=== PATIENT | male | born 1970 | race African-American/Black ===

== ENCOUNTER → 2018-06-21 | Outpatient (REF) | payer OTHER ==
[2018-06-21 18:22] LABS: ALBUMIN/GLOBULIN RATIO 1.11 (1.00-1.93); ALKALINE PHOSPHATASE 122 U/L (45-117); ALT/SGPT 48 U/L (12-78); ANION GAP 7 MEQ/L (8-16); AST/SGOT 28 U/L (7-37); BILIRUBIN,TOTAL 0.4 MG/DL (0.2-1.0); BLOOD UREA NITROGEN 12 MG/DL (7-18); CALCIUM LEVEL 9.1 MG/DL (8.5-10.1); CARBON DIOXIDE LEVEL 30 MEQ/L (21-32); CHLORIDE LEVEL 104 MEQ/L (98-107); CHOLESTEROL LEVEL 134 MG/DL (<200); CHOLESTEROL RISK RATIO 3.828 (<5); CREATININE FOR GFR 1.34 MG/DL (0.70-1.30); GLOMERULAR FILTRATION RATE > 60.0 (>60); GLUCOSE, FASTING 218 MG/DL (70-100); HDL CHOLESTEROL 35 MG/DL (>40); LDL CHOLESTEROL 71 MG/DL (<100); NON-HDL-C 99 MG/DL; POTASSIUM SERUM 3.8 MEQ/L (3.5-5.1); SODIUM LEVEL 141 MEQ/L (136-145); TOTAL PROTEIN 7.6 GM/DL (6.4-8.2); TRIGLYCERIDES LEVEL 140 MG/DL (<150)
[2018-06-21 18:27] LABS: ESTIMATED AVERAGE GLUCOSE 235 MG/DL (60-110); HEMOGLOBIN A1c 9.8 %
[2018-06-21 18:39] LABS: BASO % 0.2 % (0.0-1.0); EOS % 0.7 % (0.0-3.0); HEMATOCRIT 42.5 % (42.0-52.0); HEMOGLOBIN 12.8 g/dl (13.5-17.5); LYMPH # 2.6 10^3/uL (1.5-4.5); LYMPH % 65.7 % (24.0-44.0); MEAN CORPUSCULAR HEMOGLOBIN 23.9 pg (27.0-33.0); MEAN CORPUSCULAR HGB CONC 30.1 g/dl (32.0-36.5); MEAN CORPUSCULAR VOLUME 79.3 fl (80.0-96.0); MONO # 0.3 10^3/uL (0.0-0.8); NEUTROPHILS % 25.4 % (36.0-66.0); PLATELET COUNT, AUTOMATED 165 10^3/uL (150-450); RED BLOOD COUNT 5.36 10^6/uL (4.30-6.10); RED CELL DISTRIBUTION WIDTH 14.1 % (11.5-14.5)
== END ==
LOC: M LABDRAW1 16:28
DX: E11.9 Type 2 diabetes mellitus without complications (principal); Z13.220 Encounter for screening for lipoid disorders; C92.01 Acute myeloblastic leukemia, in remission

== ENCOUNTER → 2018-11-21 | Outpatient (CLI) | payer OTHER ==
[~2018-11-21] MED LIST: ACTO45TA12 PO; METF10004 PO
[2018-11-21 10:29] LABS: HEMOGLOBIN A1c 7.4 %
== END ==
LOC: M LAB 09:42
PROVIDERS: ATTEND Nurse Practitioner Family
DX: E11.9 Type 2 diabetes mellitus without complications (principal)

== ENCOUNTER 2019-12-04 08:02 | Outpatient (CLI) | payer OTHER ==
[~2019-12-04 08:02] MED LIST changes: +IBUP200C25 PO; +LIDOCAINE 2% INJ 100 MG/5 ML SDV (FOR ANES.) As Ordered ONE; +MIDAZOLAM INJ 2 MG/2 ML VIAL (J2250) As Ordered ONE; +ROCURONIUM BROMIDE 50 MG/5 ML VIAL As Ordered ONE; +fentaNYL 100 MCG/2 ML INJECTION (J3010) As Ordered ONE; +propofoL 200 MG/20 ML VIAL As Ordered ONE
[2019-12-04] MEDS ORDERED: LIDOCAINE 1% MDV 20ML VIAL As Ordered ONE (08:20)
[2019-12-04 08:36] LABS: HEMATOCRIT 37.5 % (42.0-52.0); HEMOGLOBIN 11.4 g/dl (13.5-17.5); MEAN CORPUSCULAR HEMOGLOBIN 24.8 pg (27.0-33.0); MEAN CORPUSCULAR HGB CONC 30.4 g/dl (32.0-36.5); MEAN CORPUSCULAR VOLUME 81.5 fl (80.0-96.0); PLATELET COUNT, AUTOMATED 181 10^3/uL (150-450); WHITE BLOOD COUNT 3.9 10^3/uL (4.0-10.0)
[2019-12-04 10:55] VITALS: BP 152/90
--- NOTE | 2019-12-04 18:12 | REP ---
CT-GUIDED BONE MARROW BIOPSY The procedure was performed under the direct supervision of Dr. Lara. The risks and benefits of the procedure were explained to the patient and informed consent was obtained. Anesthesia was present throughout the examination for sedation and pain control. The left ilium was localized using CT guidance. The skin was prepped and draped in a sterile fashion. 1% lidocaine was used as a local anesthetic. Using CT guidance a 11-gauge bone biopsy needle system was inserted. 12 ml of fluid was withdrawn. One core sample was obtained. The patient tolerated the procedure well and there were no immediate complications. After the appropriate amount of monitored convalescence the patient was discharged from the department. Electronically Signed by ANA Jacobson 12/04/2019 05:34 P Electronically Signed by Tu Lara MD 12/04/2019 06:04 P
== END 2019-12-04 11:15 | disposition home or self-care (01) ==
LOC: M IRPRO 08:02
PROVIDERS: ATTEND Internal Medicine Hematology & Oncology
DX: C92.00 Acute myeloblastic leukemia, not having achieved remission (principal); D64.9 Anemia, unspecified; D72.819 Decreased white blood cell count, unspecified
CPT/HCPCS: 38222; 77012; 85027; 88300; 88305; 88311; 88313; 99152; 99153; J2250; J3010

== ENCOUNTER → 2019-12-18 | Outpatient (CLI) | payer OTHER ==
[~2019-12-18] MED LIST changes: -LIDOCAINE 2% INJ 100 MG/5 ML SDV (FOR ANES.) As Ordered ONE; -MIDAZOLAM INJ 2 MG/2 ML VIAL (J2250) As Ordered ONE; -ROCURONIUM BROMIDE 50 MG/5 ML VIAL As Ordered ONE; -fentaNYL 100 MCG/2 ML INJECTION (J3010) As Ordered ONE; -propofoL 200 MG/20 ML VIAL As Ordered ONE
--- NOTE | 2019-12-18 10:12 | REP ---
ULTRASOUND ABDOMEN: Real-time sonographic evaluation of the abdomen performed. There are at least two polyps identified along the inner wall of the gallbladder measuring up to 4 mm in diameter. No gallstones are seen. There is no gallbladder wall thickening or pericholecystic fluid. There is no ascites. There is no intrahepatic or extrahepatic biliary dilatation, common bile duct measuring 2 mm. Liver demonstrates no mass. Pancreas could not be seen due to overlying bowel gas. Spleen measures 10.6 x 5.4 x 12.4 cm. There is mild splenomegaly based on a splenic index of 709, normal is less than 480. Kidneys are normal in size and echotexture, right kidney measuring 10.6 x 6.5 x 6.2 cm and left kidney 10.8 x 4.6 x 5.1 cm. There is no hydronephrosis, renal mass, or nephrolithiasis. Proximal abdominal aorta is not visualized due to overlying bowel gas. Distal abdominal aorta is normal in caliber measuring up to 1.9 cm. IMPRESSION: At least two gallbladder polyps seen measuring up to 4 mm. Recommend followup ultrasound in 6 months to ensure stability. Mild splenomegaly. Liver is sonographically unremarkable. Electronically Signed by Tu Lara MD 12/18/2019 03:15 P
--- NOTE | 2019-12-18 10:31 | REP ---
REASON FOR EXAM: Assess for lytic or blastic osseous lesion. There are no priors for comparison. AP AND LATERAL VIEWS OF THE SKULL: There is no lytic or blastic osseous lesion. AP AND LATERAL VIEWS OF THE CERVICAL SPINE: There are some degenerative changes seen at the C3-4 through C5-6 levels with disc space narrowing and anterior along with posterior osteophytic ridging. There is no lytic or blastic osseous lesion. There are bilateral cervical ribs. AP EXAMINATION OF THE CHEST: There is no lytic or blastic osseous lesion. AP PELVIS: There is no lytic or blastic osseous lesion. AP AND LATERAL VIEWS OF THE LUMBAR SPINE: There are some degenerative changes seen particularly at L4-5 and L5-S1 with disc space narrowing and anterior osteophytosis. There is no lytic or blastic osseous lesion. HIP BILATERAL: FINDINGS: The hip joint spaces are symmetric and relatively well maintained. There is no acute fracture or destructive osseous lesion. There is no lytic or blastic osseous lesion. AP VIEWS OF THE FEMUR BILATERAL: There is no lytic or blastic osseous lesion. BILATERAL HUMERUS: No lytic or blastic osseous lesion. AP LATERAL VIEWS OF THE THORACIC SPINE: There are degenerative changes present particularly involving the mid thoracic level. There is no lytic or blastic osseous lesion. IMPRESSION: There are some degenerative changes as described above. There is no evidence of a lytic or blastic osseous lesion seen on this osseous survey as described above. Electronically Signed by Abel Escalante DO 12/18/2019 12:56 P
== END ==
LOC: M RAD 07:58
PROVIDERS: ATTEND Internal Medicine Hematology & Oncology
DX: C95.90 Leukemia, unspecified not having achieved remission (principal)

== ENCOUNTER → 2019-12-29 | Outpatient (CLI) | payer OTHER ==
--- NOTE | 2019-12-29 10:00 | REP ---
Duplex extremity venous ultrasound: Right lower extremity. History: Right lower extremity edema. Rule out DVT. Findings: The deep veins are anechoic and fully compressible from the groin to the popliteal fossa in the right lower extremity. Color flow imaging is homogeneous. Spectral Doppler interrogation demonstrates intact respiratory variation in flow and normal manual augmentation of flow. There is no evidence of deep vein thrombosis. In the right groin, there is a hypertrophied lymph node measuring 4.7 x 1.8 x 3.3 cm in diameter. This has a hyperechoic central hilar architecture but must be considered enlarged. Impression: There is a single enlarged lymph node in the right groin 4.7 cm in greatest diameter. Neoplastic adenopathy cannot be excluded. Otherwise negative right lower extremity duplex venous ultrasound. No evidence of deep vein thrombosis. Electronically Signed by Juan C Hankins MD 12/29/2019 09:51 A
== END ==
LOC: M RAD 09:23
PROVIDERS: ATTEND Internal Medicine Medical Oncology
DX: R59.0 Localized enlarged lymph nodes (principal)

== ENCOUNTER → 2020-01-04 | Outpatient (CLI) | payer OTHER ==
[~2020-01-04] MED LIST changes: +GASTROGRAFIN SOLUTION 30ML (Q9963) As Ordered ONE; +ISOVUE-370 76% 100ML VIAL (Q9967) As Ordered ONE
--- NOTE | 2020-01-05 06:15 | REP ---
Clinical: Left inguinal adenopathy. Technique: Axial contrast enhanced images from the thoracic inlet to the upper abdomen with coronal and sagittal re-formations using 100 ml Isovue 370 intravenous contrast material followed by contrast enhanced CT of the abdomen and pelvis. Comparison: None. Findings: The lung clark demonstrate very subtle small scattered non solid ground-glass densities primarily noted in the left hemithorax as well as an 11 mm nodule in the left lower lobe with smaller adjacent part solid nodules measuring 2 mm (image 48). No consolidation. No effusion. No pneumothorax. Tracheobronchial tree is patent. No significant axillary, hilar, or mediastinal adenopathy. Thoracic aorta, pulmonary vasculature and heart/pericardium appear normal. Surrounding musculoskeletal structures are intact. Impression: 1. Few scattered subtle non solid ground-glass densities and 11 mm left lower lobe nodule with adjacent 2 mm nodules. Findings are concerning for acute process including the possibility of metastatic disease. Short-term follow-up examination may be warranted. Electronically Signed by Joseluis Cordero MD 01/05/2020 06:07 A
--- NOTE | 2020-01-05 06:28 | REP ---
Clinical: Inguinal adenopathy. Technique: Axial contrast enhanced images from the lung bases to the pubic symphysis using oral (per protocol) and 100 ml Isovue 370 intravenous contrast material with coronal and sagittal re-formations. Findings: Liver, spleen, pancreas, gallbladder, bilateral adrenal glands are normal. Kidneys include small hypodensities measuring up to 1.2 cm likely representing cysts. The enteric system is grossly unremarkable and without obvious acute abnormality. Evaluation of the pelvis demonstrates a 3 mm bladder calculus which may have represented previously passed renal stone. Prostate and seminal vesicles are essentially unremarkable by current CT evaluation. No ascites. No intra-abdominal or retroperitoneal adenopathy. Prominent enhancing inguinal lymph nodes are identified (right greater than left) which measure up to 2.7 cm and are nonspecific by appearance. The abdominal aorta and vasculature is without aneurysm or dissection. Skeletal structures demonstrate age-related changes primarily involving the pelvis/lumbar spine. Impression: 1. 3 mm bladder calculus likely representing previously passed renal stone. 2. Small renal hypodensities most compatible with cysts. 3. No obvious acute abdominopelvic pathology appreciated. No ascites. No intra-abdominal or retroperitoneal adenopathy. 4. Moderately prominent enhancing inguinal lymph nodes (right greater than left) measure up to 2.7 cm and are nonspecific by current examination. Electronically Signed by Joseluis Cordero MD 01/05/2020 06:19 A
== END ==
LOC: M RAD 12:49
PROVIDERS: ATTEND Internal Medicine Medical Oncology
DX: R59.0 Localized enlarged lymph nodes (principal)
CPT/HCPCS: 71260; 74177; Q9963; Q9967

== ENCOUNTER 2020-02-26 16:09 | Emergency (ER) | payer OTHER ==
[~2020-02-26] VITALS: Ht 188 cm; Wt 112.7 kg
[~2020-02-26 16:09] MED LIST changes: -GASTROGRAFIN SOLUTION 30ML (Q9963) As Ordered ONE; -ISOVUE-370 76% 100ML VIAL (Q9967) As Ordered ONE
[2020-02-26] MEDS ORDERED: CYCLOBENZAPRINE 10MG TABLET PO ONE (16:45)
[2020-02-26] MEDS ORDERED: NS 1,000 ML IV ONE (16:45)
[2020-02-26] MEDS ORDERED: KETOROLAC 30 MG/ML 1ML VIAL IV ONE (16:45)
--- NOTE | 2020-02-26 17:06 | REPVR ---
PROCEDURE INFORMATION: Exam: CT Head Without Contrast Exam date and time: 02/26/2020 4:42 PM Age: 49 years old Clinical indication: Pain; Headache; Additional info: Headache/neck pain/fever TECHNIQUE: Imaging protocol: Computed tomography of the head without contrast. Radiation optimization: All CT scans at this facility use at least one of these dose optimization techniques: automated exposure control; mA and/or kV adjustment per patient size (includes targeted exams where dose is matched to clinical indication); or iterative reconstruction. COMPARISON: No relevant prior studies available. FINDINGS: Brain: Normal. No hemorrhage. Unremarkable white matter. No mass effect. Ventricles: Normal. No ventriculomegaly. Bones/joints: Unremarkable. No acute fracture. Sinuses: Visualized sinuses are unremarkable. No fluid levels. Mastoid air cells: Visualized mastoid air cells are well aerated. Soft tissues: Unremarkable. IMPRESSION: No acute intracranial abnormality. Electronically signed by: Otoniel Cabrales On 02/26/2020 17:06:00 PM
--- NOTE | 2020-02-26 17:10 | REPVR ---
PROCEDURE INFORMATION: Exam: CT Cervical Spine Without Contrast Exam date and time: 02/26/2020 4:42 PM Age: 49 years old Clinical indication: Neck pain; Additional info: Headache/neck pain/fever TECHNIQUE: Imaging protocol: Computed tomography images of the cervical spine without contrast. Radiation optimization: All CT scans at this facility use at least one of these dose optimization techniques: automated exposure control; mA and/or kV adjustment per patient size (includes targeted exams where dose is matched to clinical indication); or iterative reconstruction. COMPARISON: No relevant prior studies available. FINDINGS: Vertebrae: The spine demonstrates mild degenerative changes. C1-C2: There are degenerative changes demonstrated in the atlantoaxial joint with osteophytes and joint space narrowing. The transverse ligament is unremarkable. C2-C3: No significant disc protrusion. No severe spinal canal stenosis. No significant neural foraminal narrowing. C3-C4: No significant disc protrusion. No severe spinal canal stenosis. No significant neural foraminal narrowing. C4-C5: No significant disc protrusion. No severe spinal canal stenosis. No significant neural foraminal narrowing. C5-C6: No significant disc protrusion. No severe spinal canal stenosis. No significant neural foraminal narrowing. C6-C7: No significant disc protrusion. No severe spinal canal stenosis. No significant neural foraminal narrowing. C7-T1: No significant disc protrusion. No severe spinal canal stenosis. No significant neural foraminal narrowing. Soft tissues: See "C1-C2" finding. Sinuses: Small retention cyst left maxillary sinus. Lungs: Lung apices are normal. IMPRESSION: Mild degenerative spondylosis. No acute findings. Electronically signed by: Otoniel Cabrales On 02/26/2020 17:09:56 PM
[2020-02-26 17:28] LABS: HEMATOCRIT 34.6 % (42.0-52.0); HEMOGLOBIN 10.8 g/dl (13.5-17.5); MEAN CORPUSCULAR HEMOGLOBIN 24.9 pg (27.0-33.0); MEAN CORPUSCULAR HGB CONC 31.2 g/dl (32.0-36.5); MEAN CORPUSCULAR VOLUME 79.7 fl (80.0-96.0); RED BLOOD COUNT 4.34 10^6/uL (4.30-6.10); WHITE BLOOD COUNT 3.3 10^3/uL (4.0-10.0)
[2020-02-26 17:41] LABS: PLATELET COUNT, AUTOMATED 98 10^3/uL (150-450)
[2020-02-26 17:45] LABS: ALBUMIN 3.3 GM/DL (3.2-5.2); ALT/SGPT 43 U/L (12-78); BILIRUBIN,DIRECT < 0.1 MG/DL (0.0-0.2); BILIRUBIN,TOTAL 0.4 MG/DL (0.2-1.0); C REACTIVE PROTEIN QUANTITATIV 7.09 MG/DL (0.00-0.30); FREE T4 1.02 NG/DL (0.76-1.46); MAGNESIUM LEVEL 1.5 MG/DL (1.8-2.4); THYROID STIMULATING HORMONE 0.877 uIU/ML (0.358-3.740); TOTAL PROTEIN 8.3 GM/DL (6.4-8.2)
[2020-02-26 17:54] LABS: ERYTHROCYTE SEDIMENTATION RATE 33 mm/hr (0-15)
[2020-02-26 18:19] LABS: ATYPICAL LYMPH 11 % (0-5); LYMPHOCYTES 51 % (16-44); METAMYELOCYTES 1 % (0-0); MONOCYTES 11 % (0-5); NEUTROPHILS 26 % (28-66)
[2020-02-26 18:21] LABS: ANISOCYTOSIS 1+; MICROCYTOSIS 1+; PLATELET ESTIMATE DECREASED (NORMAL)
[2020-02-26 18:22] LABS: GIANT PLATELETS 1+; POIKILOCYTOSIS 1+
[2020-02-26 18:37] LABS: HEMOGLOBIN A1c 11.8 %
[2020-02-26 21:17] VITALS: BP 108/67
--- NOTE | 2020-02-27 03:53 | REP ---
TWO-VIEW CHEST, 02/26/2020: INDICATION: Fever. COMPARISON: CT chest dated 01/04/2020. FINDINGS: The previously described tiny nodules on the CT exam are not significantly appreciated on the current study. No new nodules are detected. There is no pleural effusion or pneumothorax. No airspace consolidation is present. The cardiac silhouette is normal in size. IMPRESSION: No acute cardiopulmonary process. MTDD
[2020-02-27] MEDS ORDERED: LEVA1TAB2 PO (16:30)
[2020-03-06] MEDS ORDERED: ACTO45TA12 PO (11:15)
[2020-03-06] MEDS ORDERED: METF-838 PO (11:15)
== END 2020-02-26 21:19 | disposition home or self-care (01) ==
LOC: M ED 16:09
DX: R51 Headache (principal); R50.9 Fever, unspecified; Z91.14 Patient's other noncompliance with medication regimen; E11.9 Type 2 diabetes mellitus without complications; F41.9 Anxiety disorder, unspecified; F32.9 Major depressive disorder, single episode, unspecified; Z79.84 Long term (current) use of oral hypoglycemic drugs; Z79.899 Other long term (current) drug therapy
CPT/HCPCS: 70450; 71046; 72125; 80047; 80076; 81001; 83036; 83605; 83735; 84439; 84443; 85025; 85049; 85055; 85652; 86140; 96361; 96374; 99284; J1885

== ENCOUNTER → 2020-03-19 | Outpatient (REF) | payer OTHER ==
[~2020-03-19] MED LIST changes: +LEVA1TAB2 PO; +METF-838 PO
[2020-03-19 13:19] LABS: HEMATOCRIT 25.9 % (42.0-52.0); MEAN CORPUSCULAR HEMOGLOBIN 24.9 pg (27.0-33.0); MEAN CORPUSCULAR HGB CONC 30.9 g/dl (32.0-36.5); MEAN CORPUSCULAR VOLUME 80.7 fl (80.0-96.0); RED BLOOD COUNT 3.21 10^6/uL (4.30-6.10); WHITE BLOOD COUNT 4.7 10^3/uL (4.0-10.0)
[2020-03-19 13:30] LABS: ALBUMIN 2.8 GM/DL (3.2-5.2); ALT/SGPT 21 U/L (12-78); BILIRUBIN,TOTAL 0.4 MG/DL (0.2-1.0); BLOOD UREA NITROGEN 14 MG/DL (7-18); CALCIUM LEVEL 8.2 MG/DL (8.5-10.1); CARBON DIOXIDE LEVEL 25 MEQ/L (21-32); CHLORIDE LEVEL 103 MEQ/L (98-107); CHOLESTEROL LEVEL 102 MG/DL (<200); CHOLESTEROL RISK RATIO 4.857 (<5); CREATININE FOR GFR 1.59 MG/DL (0.70-1.30); GLOMERULAR FILTRATION RATE > 60.0 (>60); GLUCOSE, FASTING 170 MG/DL (70-100); HDL CHOLESTEROL 21 MG/DL (>40); LDL CHOLESTEROL 56 MG/DL (<100); NON-HDL-C 81 MG/DL; POTASSIUM SERUM 3.7 MEQ/L (3.5-5.1); SODIUM LEVEL 134 MEQ/L (136-145); TOTAL PROTEIN 8.4 GM/DL (6.4-8.2); TRIGLYCERIDES LEVEL 124 MG/DL (<150)
[2020-03-19 13:43] LABS: HEMOGLOBIN A1c 12.8 %
[2020-03-19 13:59] LABS: TOTAL 25(OH) VITAMIN D 15.3 NG/ML (30.0-100.0)
[2020-03-19 14:04] LABS: PLATELET COUNT, AUTOMATED 98 10^3/uL (150-450)
[2020-03-19 14:49] LABS: ATYPICAL LYMPH 7 % (0-5); BLAST CELLS 3 % (0-0); LYMPHOCYTES 76 % (16-44); MONOCYTES 7 % (0-5); NEUTROPHILS 7 % (28-66); PLATELET ESTIMATE DECREASED (NORMAL)
[2020-03-19 14:50] LABS: ANISOCYTOSIS 2+; HYPOCHROMASIA 2+; OVALOCYTES 1+; POIKILOCYTOSIS 2+; SMUDGE CELLS 1+
[2020-03-19 14:52] LABS: POLYCHROMASIA 1+
== END ==
LOC: M LAB REF 12:27
PROVIDERS: ATTEND Nurse Practitioner Family
DX: L03.116 Cellulitis of left lower limb (principal); G44.219 Episodic tension-type headache, not intractable; E11.9 Type 2 diabetes mellitus without complications; M79.662 Pain in left lower leg; R22.42 Localized swelling, mass and lump, left lower limb

== ENCOUNTER → 2020-03-26 | Outpatient (CLI) | payer OTHER ==
[~2020-03-26] MED LIST changes: +B-1100TA2; +B-12100020; +FOLI1TAB11; +MAGN400T3; +POTA20TA6; +VITA100T71
--- NOTE | 2020-03-27 07:27 | REP ---
DEEP VENOUS ULTRASONOGRAPHY LEFT THIGH, RULE OUT DVT: REASON: Pain and swelling. TECHNIQUE: Multiple ultrasonographic images of the deep venous structures of the thigh were obtained from the common femoral vein to the popliteal vein along with Doppler interrogation and color flow Doppler images. FINDINGS: There is no abnormal echogenic material seen within any of the visualized deep venous structures that would suggest acute thrombosis. Coaptation is unremarkable throughout. Doppler interrogation shows an expected response to respiratory variability and augmentation. The color flow images show what appears to be a normal vascular pattern throughout. IMPRESSION: There is no ultrasonographic evidence of deep venous thrombosis involving any of the visualized deep venous structures of the left thigh, as described above.
== END ==
LOC: M WHC 12:28
PROVIDERS: ATTEND Nurse Practitioner Family
DX: R22.42 Localized swelling, mass and lump, left lower limb (principal); M79.662 Pain in left lower leg

== ENCOUNTER 2020-03-27 14:45 | Observation (INO) | payer OTHER ==
[~2020-03-27] VITALS: Ht 188 cm; Wt 108.9 kg
[~2020-03-27 14:45] MED LIST changes: -B-1100TA2; -B-12100020; -FOLI1TAB11; -MAGN400T3; -POTA20TA6; -VITA100T71
[2020-03-27] MEDS ORDERED: NS 1,000 ML IV ONE (15:15)
[2020-03-27 15:39] LABS: HEMATOCRIT 23.2 % (42.0-52.0); HEMOGLOBIN 7.1 g/dl (13.5-17.5); MEAN CORPUSCULAR HEMOGLOBIN 24.4 pg (27.0-33.0); MEAN CORPUSCULAR HGB CONC 30.6 g/dl (32.0-36.5); MEAN CORPUSCULAR VOLUME 79.7 fl (80.0-96.0); RED BLOOD COUNT 2.91 10^6/uL (4.30-6.10); WHITE BLOOD COUNT 6.2 10^3/uL (4.0-10.0)
[2020-03-27 15:45] LABS: PLATELET COUNT, AUTOMATED 68 10^3/uL (150-450)
[2020-03-27 16:10] LABS: ALBUMIN 2.9 GM/DL (3.2-5.2); ALT/SGPT 20 U/L (12-78); BILIRUBIN,DIRECT < 0.1 MG/DL (0.0-0.2); BILIRUBIN,TOTAL 0.1 MG/DL (0.2-1.0); BLOOD UREA NITROGEN 23 MG/DL (7-18); CALCIUM LEVEL 8.2 MG/DL (8.5-10.1); CARBON DIOXIDE LEVEL 27 MEQ/L (21-32); CHLORIDE LEVEL 109 MEQ/L (98-107); CREATININE FOR GFR 1.72 MG/DL (0.70-1.30); GLUCOSE, FASTING 150 MG/DL (70-100); LIPASE 413 U/L (73-393); POTASSIUM SERUM 3.8 MEQ/L (3.5-5.1); SODIUM LEVEL 139 MEQ/L (136-145); TOTAL PROTEIN 8.4 GM/DL (6.4-8.2)
[2020-03-27 16:20] LABS: ATYPICAL LYMPH 8 % (0-5); BASOPHILS 2 % (0-1); BLAST CELLS 4 % (0-0); LYMPHOCYTES 68 % (16-44); MONOCYTES 10 % (0-5); NEUTROPHILS 5 % (28-66); PLATELET ESTIMATE DECREASED (NORMAL); PROMYELOCYTES 3 % (0-0)
[2020-03-27 16:21] LABS: ANISOCYTOSIS 1+; HYPOCHROMASIA 1+; MICROCYTOSIS 1+; POLYCHROMASIA 1+; SMUDGE CELLS 1+
[2020-03-27] MEDS ORDERED: NS 1,000 ML IV SCH (18:00)
[2020-03-27] MEDS ORDERED: DEXTROSE 50% 50 ML SYRINGE IV PRN (18:15)
[2020-03-27] MEDS ORDERED: GLUCOSE 4GM CHEW TABLET PO PRN (18:15)
[2020-03-27] MEDS ORDERED: GLUCAGON INJ 1MG VIAL SC PRN (18:15)
[2020-03-27] MEDS ORDERED: metFORMIN XR 500MG TAB *GLUCOPHAGE XR PO SCH (21:00)
[2020-03-27] MEDS ORDERED: HumaLOG INSULIN (NovoLOG) PER UNIT SC SCH (21:00)
[2020-03-28] VITALS (18 sets, daily range): BP systolic 105–129; BP diastolic 58–86
[2020-03-28] MEDS ORDERED: ACETAMINOPHEN 650MG ER TAB (TYLENOL ARTHRITIS) PO PRN (01:30)
[2020-03-28] MEDS ORDERED: FAMOTIDINE 20 MG TAB PO ONE (01:30)
--- NOTE | 2020-03-28 04:35 | HPE ---
DATE OF ADMISSION: 03/27/2020 CHIEF COMPLAINT: Shortness of breath. 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 The patient had a bone marrow biopsy 05/23/2015 with residual AML (AML) with 10% blasts, reinduction with MEC chemotherapy. Later bone marrow biopsy showed no evidence of residual disease, status post 3 cycles of Olga-C consolidation, remain in complete remission. Last chemo was 2015. Chemo was complicated with acute renal insufficiency and cellulitis with improvement. The patient had noted two weeks of worsening dizziness and shortness of breath. 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 He has had no falls. Denies bright red blood per rectum, melena or black tarry stools. No coffee ground emesis. No palpitations. Increase in shortness of breath occurred in the past one week, especially worse when he walks up just a small hill. No chest pain, pressure or tightness. He had a similar episode about four years ago when he had severe anemia. He then went to the registration after being in touch with his oncologist and found to be anemia with hemoglobin of 7.5 and hematocrit of 24.9 on 03/25/2020. While at registration today, the patient sat down and was waiting to be called when he developed severe left-sided back pain that lasted for about an hour described as 10/10, very sharp without any radiation. I recognized this as prior kidney stone pain and he therefore went to the bathroom to urinate, after which he saw some brownish urine. He was then sent to the emergency room for further evaluation. CT of the abdomen and pelvis for negative for a kidney stone and he was subsequently asked to be admitted for red blood cells (RBC) transfusion. Per medical oncologist aeronautical products sales engineer, Dr. Kim. The patient is to have washed red blood cells (RBCs) 2 units and may be discharged home if stable overnight. The patient denies any fever or chills, dysuria, urgency, frequency. No recurrent episodes of left-sided flank pain. The patient complains of neuropathy in his left leg from his diabetes and says takes Tylenol and ibuprofen, but was told not to take any more ibuprofen by his primary care physician. Creatinine today is 2.72. He has chronic kidney disease with a creatinine of 1.5 at baseline. Hospitalist was asked to admit. PAST MEDICAL HISTORY: 1. Acute myeloblastic leukemia (AML). 2. Type 2 diabetes. 3. Chronic kidney disease, stage III. PAST SURGICAL HISTORY: 1. Bilateral carpal tunnel surgery. 2. Tonsillectomy. 3. Port placement for chemotherapy several years ago. ALLERGIES: No known drug allergies. HOME MEDICATIONS: - metformin 1 gm at bedtime (q.h.s.). 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 He smokes two cigars a year. Occasionally has liquor once to twice a week. The patient does not have a healthcare proxy. Lives alone, does not drive. FAMILY HISTORY: Father had diabetes, in his 60s. Mother with diabetes, hypertension, in her 60s. Several brothers and sisters, unknown medical problems. REVIEW OF SYSTEMS: Per history of present illness. 12-point system otherwise negative. PHYSICAL EXAMINATION: Temperature 96.5, pulse 99, respiratory rate 22, blood pressure (BP) 126/77, 100% on room air. General: Awake, alert, and oriented times 2, answered questions appropriately. No icterus, no jaundice. No pallor. No jugular venous distension (JVD), thyromegaly or cervical lymphadenopathy. Moist mucous membranes. Lungs are clear to auscultation. No wheezing, rales or rhonchi. Heart: S1, S2, sinus rhythm. Abdomen: Soft, nontender, nondistended. Positive bowel sounds. Extremities: No cyanosis or clubbing. There is 1+ pitting edema bilaterally. LABORATORY DATA: White count is 6.2, hemoglobin 7.1, hematocrit 22.2, platelet count is 68. Sodium 139, potassium 2.8, chloride 109, bicarbonate 27, BUN 22, creatinine 1.72. Previous creatinine was 1.59 in February 2020. Yesterday it was 1.82, glucose is 150, calcium is 8.2. CT abdomen and pelvis: No official report. ASSESSMENT AND PLAN: This is a 49-year-old male, -[place], acute myeloblastic leukemia (AML) and type 2 diabetes with complaints of symptomatic anemia, dizziness for two weeks, worsening shortness of breath for the past one week, found to be anemic with hemoglobin of 7 and hematocrit of 23. CURRENT ISSUES: 1. Symptomatic anemia, most likely related to his acute myeloblastic leukemia (AML). Per medical oncologist, Dr. Kim, the patient is to be transfused 2 units of washed red blood cells, check hemoglobin and hematocrit after and may be discharged home in the morning. 2. History of kidney stones. The patient with some gross hematuria. The patient currently has no fever or chills. Says that he may have passed a kidney stone while waiting in registration. Currently has no pain. No dysuria, urgency, frequency. No empiric antibiotics currently. Has no obstructive stones on the CT abdomen and pelvis. Outpatient followup with his primary care physician. 2. Type 2 diabetes. The patient may resumed on his home metformin and Actos. 3. Chronic thrombocytopenia. Platelet count are 84 to 146. No acute indication for red blood cell (RBC) transfusion.
--- NOTE | 2020-03-28 05:53 | REP ---
CT ABDOMEN AND PELVIS WITHOUT CONTRAST: CT abdomen and pelvis performed without oral or IV contrast. Comparison made with prior CT with contrast 01/04/2020. In the visualized lung bases, there is a stable nodule in the left lower lobe. The liver is grossly unremarkable. Spleen is normal in size. The adrenal glands are normal. No gross pancreatic abnormality is seen. Punctate calcification is seen in the lower right renal collecting system. No ureteral calculus is seen bilaterally, and there is no hydroureteronephrosis. There is no abdominal aortic aneurysm. There is no adenopathy. There is no free air or free fluid. There is no bowel wall thickening. The appendix is normal. The urinary bladder is mildly distended and grossly unremarkable. There is bilateral inguinal adenopathy. Largest lymph node in the right inguinal region measures 2.6 x 1.9 cm and left inguinal region 3.0 x 1.9 cm. IMPRESSION: Stable left lower lobe nodule. Bilateral inguinal adenopathy, as discussed above. Punctate calcification right renal collecting system. No ureteral calculus and no hydroureteronephrosis. Appendix is normal. Electronically Signed by Tu Lara MD 03/31/2020 10:03 P
[2020-03-28 06:01] LABS: HEMATOCRIT 21.7 % (42.0-52.0); MEAN CORPUSCULAR HEMOGLOBIN 25.1 pg (27.0-33.0); MEAN CORPUSCULAR HGB CONC 31.3 g/dl (32.0-36.5); MEAN CORPUSCULAR VOLUME 80.1 fl (80.0-96.0); RED BLOOD COUNT 2.71 10^6/uL (4.30-6.10); WHITE BLOOD COUNT 4.7 10^3/uL (4.0-10.0)
[2020-03-28 06:06] LABS: HEMOGLOBIN 6.8 g/dl (13.5-17.5); PLATELET COUNT, AUTOMATED 54 10^3/uL (150-450)
[2020-03-28 06:29] LABS: BLOOD UREA NITROGEN 20 MG/DL (7-18); CALCIUM LEVEL 7.8 MG/DL (8.5-10.1); CARBON DIOXIDE LEVEL 26 MEQ/L (21-32); CHLORIDE LEVEL 109 MEQ/L (98-107); CREATININE FOR GFR 1.51 MG/DL (0.70-1.30); GLOMERULAR FILTRATION RATE > 60.0 (>60); GLUCOSE, FASTING 132 MG/DL (70-100); POTASSIUM SERUM 3.8 MEQ/L (3.5-5.1); SODIUM LEVEL 141 MEQ/L (136-145)
[2020-03-28] MEDS: HumaLOG INSULIN (NovoLOG) PER UNIT SC SCH ×2 (07:30→12:00)
--- NOTE | 2020-03-28 13:21 | IPNPDOC ---
Text Note Date of Service The patient was seen on 03/28/20. NOTE Subjective: -Still has some chest pain that sounds like pleuritic in nature, not made worse by exertion and present at rest, 3-4/10 level -Wants to know when he will discharged because he was told that he needs blood and can go home shortly after Objective: PHYSICAL EXAMINATION: Vitals: see below, HDS, afebrile General: Awake, alert, and oriented, NAD HEENT: Normocephalic, atraumatic, anicteric, PERRLA, EOMI Neck: No JVD, palpable adenopathy or thyromegaly Lungs: Lungs are clear to auscultation. No wheezing, rales or rhonchi. Heart: S1, S2, sinus rhythm. Abdomen: Soft, nontender, nondistended. Normoactive bowel sounds. Extremities: 1+ pitting edema bilaterally with some hyperpigmentation of LE shins Skin: sloughing of LE skin, no open lesions LABORATORY DATA: WBC 4.7 Hgb 6.[address] abdomen and pelvis: In the visualized lung bases, there is a stable nodule in the left lower lobe. The liver is grossly unremarkable. Spleen is normal in size. The adrenal glands are normal. No gross pancreatic abnormality is seen. Punctate calcification is seen in the lower right renal collecting system. No ureteral calculus is seen bilaterally, and there is no hydroureteronephrosis. There is no abdominal aortic aneurysm. There is no adenopathy. There is no free air or free fluid. There is no bowel wall thickening. The appendix is normal. The urinary bladder is mildly distended and grossly unremarkable. There is bilateral inguinal adenopathy. Largest lymph node in the right inguinal region measures 2.6 x 1.9 cm and left inguinal region 3.0 x 1.9 cm. ASSESSMENT AND PLAN: This is a 49-year-old -[place] and with history of AML s/p 7+3 induction x 2 and [facility] consolidation with remission who was admitted from hematology clinic with symptomatic anemia, dizziness for two weeks, worsening shortness of breath for the past one week, found to be anemic to 6.5 s/p 4u washed pRBCs pending follow up CBC for potential discharge home per hematolgoy recs. CURRENT ISSUES: 1. Symptomatic anemia, most likely 2/2 to recurrent acute myeloblastic leukemia (AML). -Per medical oncologist, Dr. Kim, the patient should be transfused washed red blood cells, check hemoglobin and hematocrit after and may be discharged home after 2. History of kidney stones. The patient had an episode of some gross hematuria, likely passed stone and has no fever and chills or dysuria. Will monitor 3. Type 2 diabetes. resumed on his home metformin. Actos being held, to restart at discharge. 4. Chronic thrombocytopenia. No acute indication for red blood cell (RBC) transfusion. 5. Chest pain; likely demand ischemia 2/2 anemia with non ischemic EKG, negative troponin. -D dimer given pleurisy to see if he warrants a V/Q scan given the renal insult and cannot have contrast 6. renal injury: has had elevated Cr since 03/09 labs -monitor for now DVT ppx: TEDs VS,Fishbone, I+O VS, Fishbone, I+O Laboratory Tests 03/27/20 15:23 03/28/20 05:21 Vital Signs Date Time Temp Pulse Resp B/P (MAP) Pulse Ox O2 Delivery O2 Flow Rate FiO2 03/28/20 12:43 97.0 68 16 108/59 99 Room Air I&O- Last 24 Hours up to 6 AM 03/28/20 06:00 Intake Total 770 ml Balance 770 ml CHERYL RODRIGUEZ MD Mar 28, 2020 13:21
[2020-03-28 14:35] LABS: HEMATOCRIT 29.3 % (42.0-52.0); MEAN CORPUSCULAR HEMOGLOBIN 26.4 pg (27.0-33.0); MEAN CORPUSCULAR HGB CONC 32.1 g/dl (32.0-36.5); MEAN CORPUSCULAR VOLUME 82.3 fl (80.0-96.0); RED BLOOD COUNT 3.56 10^6/uL (4.30-6.10); WHITE BLOOD COUNT 4.6 10^3/uL (4.0-10.0)
[2020-03-28 14:39] LABS: HEMOGLOBIN 9.4 g/dl (13.5-17.5); PLATELET COUNT, AUTOMATED 56 10^3/uL (150-450)
--- NOTE | 2020-03-28 16:29 | DS.PDOC ---
Discharge Summary General Date of Admission Mar 27, 2020 at 18:32 Date of Discharge 03/28/2020 Attending Physician: CHERYL RODRIGUEZ MD Discharge Summary PROCEDURES PERFORMED DURING STAY: None ADMITTING DIAGNOSES: 1. 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 He presented to the ED reporting two weeks of worsening dizziness and shortness of breath, without any falls, bright red blood per rectum, melena or black tarry stools. No coffee ground emesis. No palpitations. He also reported some mild chest pain without pressure or tightness. He had a similar episode about four years ago when he had severe anemia. He initially presented to registration after being in touch with his oncologist and found to be anemia with hemoglobin of 7.5 and hematocrit of 24.9 on 03/25/2020. While at registration, he developed severe left-sided back pain that lasted for about an hour and recognized this as prior kidney stone pain and he therefore went to the bathroom to urinate, after which he saw some brownish urine. He was then sent to the emergency room for further evaluation. HOSPITAL COURSE: In the ED, he was hemodynamically stable, afebrile and on evaluation had a non ischemic EKG, negative troponin, no hypoxemia, with CT of the abdomen and pelvis being negative for a kidney stone and on speaking with the net development manager bank operations officer Dr. Kim, he recommended admission for transfusion with washed red blood cells and be discharged home if stable overnight. He was transfused 2 units without improvement in the Hgb so he was transfused 2 more units to which he eventually responded to a Hgb of 9.4. Of note, I discussed his anemia with Dr. 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 Nichole his new net development manager and will also order tickborne panel to rule out infectious etiology. DISCHARGE MEDICATIONS: Please see below. ALLERGIES: Please see below. PHYSICAL EXAMINATION ON DISCHARGE: VITAL SIGNS: Please see below. General: Awake, alert, and oriented, NAD HEENT: Normocephalic, atraumatic, anicteric, PERRLA, EOMI Neck: No JVD, palpable adenopathy or thyromegaly Lungs: Lungs are clear to auscultation. No wheezing, rales or rhonchi. Heart: S1, S2, sinus rhythm. Abdomen: Soft, nontender, nondistended. Normoactive bowel sounds. Extremities: 1+ pitting edema bilaterally with some hyperpigmentation of LE shins Skin: sloughing of LE skin, no open lesions LABORATORY DATA: Please see below. IMAGING: In the visualized lung bases, there is a stable nodule in the left lower lobe. The liver is grossly unremarkable. Spleen is normal in size. The adrenal glands are normal. No gross pancreatic abnormality is seen. Punctate calcification is seen in the lower right renal collecting system. No ureteral calculus is seen bilaterally, and there is no hydroureteronephrosis. There is no abdominal aortic aneurysm. There is no adenopathy. There is no free air or free fluid. There is no bowel wall thickening. The appendix is normal. The urinary bladder is mildly distended and grossly unremarkable. There is bilateral inguinal adenopathy. Largest lymph node in the right inguinal region measures 2.6 x 1.9 cm and left inguinal region 3.0 x 1.9 cm. PROGNOSIS: Good ACTIVITY: As tolerated DIET: Consistent carb DISCHARGE PLAN: home with close hematology follow up DISPOSITION: home with close hematology follow up DISCHARGE INSTRUCTIONS: 1. Hematology follow up within 1 week ITEMS TO FOLLOWUP ON ON OUTPATIENT: 1. Anemia, hematology follow up DISCHARGE CONDITION: Stable TIME SPENT ON DISCHARGE: 45 minutes. Vital Signs/I&Os Vital Signs Date Time Temp Pulse Resp B/P (MAP) Pulse Ox O2 Delivery O2 Flow Rate FiO2 03/28/20 14:00 97.5 73 18 114/64 (81) 100 Room Air I&O- Last 24 Hours up to 6 AM 03/28/20 06:00 Intake Total 770 ml Balance 770 ml Laboratory Data Labs 24H Laboratory Tests 2 03/27/20 17:27: Urine Color YELLOW, Urine Appearance HAZY, Urine pH 5.0, Urine Specific [place] 1.012, Urine Protein 1+H, Urine Glucose (UA) NEGATIVE, Urine Ketones NEGATIVE, Urine Blood 3+H, Urine Nitrite NEGATIVE, Urine Bilirubin NEGATIVE, Urine Urobilinogen 0.2, Urine Leukocyte Esterase NEGATIVE, Urine WBC (Auto) 1, Urine RBC (Auto) TNTCH, Urine Hyaline Casts (Auto) 0, Urine Bacteria (Auto) NEGATIVE, Urine Squamous Epithelial Cells 0, Urine Mucus (Auto) SMALL, Urine Sperm (Auto) 03/27/20 21:13: Bedside Glucose (Misc Panel) 183H 03/28/20 02:02: Troponin I < 0.02 03/28/20 05:21: Nucleated Red Blood Cells % (auto) 0.0, Differential Slide Review Report, Peripheral Blood Smear Path Consult PERIPHERAL SMEAR, Anion Gap 6L, Glomerular Filtration Rate > 60.0, Calcium Level 7.8L 03/28/20 14:06: Nucleated Red Blood Cells % (auto) 0.0, D-Dimer, Quantitative 706.45H CBC/BMP Laboratory Tests 03/28/20 05:21 03/28/20 14:06 FSBS Laboratory Tests Test 03/27/20 21:13 Range/Units Bedside Glucose (Misc Panel) 183 70-105 MG/DL Discharge Medications Scheduled Metformin HCl (Metformin HCl ER) 500 Mg Tab.er.24h, 1,000 MG PO QHS, (Reported) Pioglitazone HCl (Actos) 45 Mg Tablet, 45 MG PO DAILY, (Reported) Allergies Coded Allergies: No Known Allergies (Verified , 03/26/03) CHERYL RODRIGUEZ MD Mar 28, 2020 16:29
--- NOTE | 2020-03-29 10:06 | ECGEPIP ---
[facility] - ED Test Date: 2020-03-28 Pat Name: ASHISH LO Department: Room: 0102 Gender: Male Noteman: ESTUARDO : 1970 Requested By: Jyoti Preston Order Number: [id number] Reading MD: Jyoti Preston Measurements Intervals [place] Rate: 60 P: 26 [place]: 164 QRS: 19 QRSD: 103 T: 27 QT: 406 QTc: 407 Interpretive Statements SINUS RHYTHM WITH SINUS ARRHYTHMIA NSTTW abnormalities NO PRIOR Electronically Signed on 03-29-2020 10:05:46 EDT by Jyoti Preston
[2020-04-09 16:08] LABS: BABESIA MICROTI PCR Negative (Negative); BABESIOSIS LEVEL IGG <1:10 (Neg:<1:10); BABESIOSIS LEVEL IGM <1:10 (Neg:<1:10); E CHAFFEENSIS IgG TITER Negative (Neg:<1:64); E CHAFFEENSIS IgM TITER Negative (Neg:<1:20); HAPTOGLOBIN 222 mg/dL (23-355); HUMAN GRANULCYTIC EHRLIC IgG Negative (Neg:<1:64); HUMAN GRANULCYTIC EHRLIC IgM Negative (Neg:<1:20)
== END 2020-03-28 16:25 | disposition home or self-care (01) ==
LOC: M ED 14:45 → M ED INP 18:32
PROVIDERS: ADMIT General Practice; ATTEND General Practice
DX: D64.9 Anemia, unspecified (principal); N18.3 Chronic kidney disease, stage 3 (moderate); Z85.6 Personal history of leukemia; E11.9 Type 2 diabetes mellitus without complications; Z92.21 Personal history of antineoplastic chemotherapy; R06.02 Shortness of breath; R42 Dizziness and giddiness; R91.1 Solitary pulmonary nodule; N20.0 Calculus of kidney; Z79.84 Long term (current) use of oral hypoglycemic drugs; F17.290 Nicotine dependence, other tobacco product, uncomplicated
CPT/HCPCS: 36415; 36430; 74176; 80048; 80076; 81001; 83010; 83690; 85025; 85027; 85049; 85055; 85379; 86609; 86666; 86850; 86900; 86901; 86920; 87798; 93005; 96374; 99284; P9016

== ENCOUNTER → 2020-04-22 | Outpatient (CLI) | payer OTHER ==
[~2020-04-22] MED LIST changes: +B-1100TA2; +B-12100020; +FOLI1TAB11; +LIDOCAINE 1% MDV 20ML VIAL As Ordered ONE; +MAGN400T3; +POTA20TA6; +VITA100T71
--- NOTE | 2020-07-15 09:49 | REP ---
CT-GUIDED RIGHT ILIAC BONE MARROW BIOPSY: The procedure was performed under the direct supervision of Dr. Hankins. The risks and benefits of the procedure were explained to the patient and informed consent was obtained. PROCEDURE: The right iliac bone was localized using CT guidance. The skin was prepped and draped in a sterile fashion. 1% lidocaine was used as a local anesthetic. Using CT guidance, an 11-gauge coaxial needle biopsy system was inserted and advanced into the iliac bone. 7 cc of red fluid was withdrawn was well as 1 core. The patient tolerated the procedure well and there were no immediate complications. After the appropriate amount of monitored convalescence, the patient was discharged from the department. HAYLEE
== END ==
LOC: M IRPRO 01:00
PROVIDERS: ATTEND Specialist
DX: C92.02 Acute myeloblastic leukemia, in relapse (principal)

== ENCOUNTER → 2020-06-28 | Outpatient (REF) | payer OTHER ==
[~2020-06-28] MED LIST changes: -LIDOCAINE 1% MDV 20ML VIAL As Ordered ONE
[2020-06-28 16:55] LABS: BASO % 0.5 % (0.0-1.0); EOS % 0.9 % (0.0-3.0); HEMATOCRIT 29.2 % (42.0-52.0); HEMOGLOBIN 9.3 g/dl (13.5-17.5); LYMPH # 1.1 10^3/uL (1.5-5.0); LYMPH % 24.3 % (24.0-44.0); MEAN CORPUSCULAR HEMOGLOBIN 28.6 pg (27.0-33.0); MEAN CORPUSCULAR HGB CONC 31.8 g/dl (32.0-36.5); MEAN CORPUSCULAR VOLUME 89.8 fl (80.0-96.0); MONO # 0.6 10^3/uL (0.0-0.8); MONO % 12.8 % (0.0-5.0); NEUTROPHILS # 2.7 10^3/uL (1.5-8.5); PLATELET COUNT, AUTOMATED 177 10^3/uL (150-450); RED BLOOD COUNT 3.25 10^6/uL (4.30-6.10); WHITE BLOOD COUNT 4.4 10^3/uL (4.0-10.0)
[2020-06-28 17:01] LABS: APPEARANCE, URINE CLEAR (CLEAR); BACTERIA, URINE AUTO 1+ (NEGATIVE); BILIRUBIN, URINE AUTO NEGATIVE (NEGATIVE); BLOOD, URINE BLOOD NEGATIVE (NEGATIVE); COLOR, URINE YELLOW (YELLOW); GLUCOSE, URINE (UA) AUTO NEGATIVE (NEGATIVE); KETONE, URINE AUTO NEGATIVE (NEGATIVE); LEUKOCYTE ESTERASE, URINE AUTO NEGATIVE (NEGATIVE); MUCUS, URINE SMALL (NEGATIVE); NITRITE, URINE AUTO NEGATIVE (NEGATIVE); PROTEIN, URINE AUTO 1+ mg/dL (NEGATIVE); RBC, URINE AUTO 0 /HPF (0-3); SPECIFIC GRAVITY URINE AUTO 1.017 (1.002-1.035); SQUAMOUS EPITHELIAL CELL UR AU 0 /HPF (0-6); UROBILINOGEN, URINE AUTO 0.2 mg/dL (0.0-2.0); WBC, URINE AUTO 1 /HPF (0-3)
[2020-06-28 17:14] LABS: HEMOGLOBIN A1c 6.1 %
[2020-06-28 17:20] LABS: ALBUMIN 3.2 GM/DL (3.2-5.2); ALT/SGPT 18 U/L (12-78); BILIRUBIN,TOTAL 0.2 MG/DL (0.2-1.0); BLOOD UREA NITROGEN 11 MG/DL (7-18); CALCIUM LEVEL 8.8 MG/DL (8.5-10.1); CARBON DIOXIDE LEVEL 27 MEQ/L (21-32); CHLORIDE LEVEL 104 MEQ/L (98-107); CHOLESTEROL LEVEL 132 MG/DL (<200); CREATININE FOR GFR 1.31 MG/DL (0.70-1.30); GLOMERULAR FILTRATION RATE > 60.0 (>60); GLUCOSE, FASTING 132 MG/DL (70-100); HDL CHOLESTEROL 48 MG/DL (>40); LDL CHOLESTEROL 59 MG/DL (<100); NON-HDL-C 84 MG/DL; POTASSIUM SERUM 3.9 MEQ/L (3.5-5.1); SODIUM LEVEL 137 MEQ/L (136-145); TOTAL PROTEIN 8.2 GM/DL (6.4-8.2); TRIGLYCERIDES LEVEL 126 MG/DL (<150)
[2020-06-28 17:26] LABS: TOTAL 25(OH) VITAMIN D 19.2 NG/ML (30.0-100.0)
== END ==
LOC: M LAB REF 16:15
PROVIDERS: ATTEND Nurse Practitioner Family
DX: D64.9 Anemia, unspecified (principal); D64.89 Other specified anemias; Z13.9 Encounter for screening, unspecified; M79.662 Pain in left lower leg; E11.9 Type 2 diabetes mellitus without complications

== ENCOUNTER → 2020-07-25 | Outpatient (CLI) | payer OTHER ==
[~2020-07-25] MED LIST changes: +LIDOCAINE 1% MDV 20ML VIAL As Ordered ONE
[2020-07-25 11:45] VITALS: BP 123/71
--- NOTE | 2020-07-25 16:45 | REP ---
INDICATION: ACUTE MYELOID LEUKEMIA. COMPARISON: None. TECHNIQUE: The procedure was performed under the direct supervision of Dr. Lara. The risk and benefits of the procedure were explained to the patient informed consent was obtained. The right iliac wing was localized using CT guidance. The skin was prepped and draped in a sterile fashion. 1% lidocaine was used as a local anesthetic. Using CT guidance an 11 gauge bone biopsy needle was inserted and 5 cc of marrow fluid was withdrawn. One core sample was obtained. The patient tolerated the procedure well and there were no immediate complications. After the appropriate amount to monitor convalescence the patient was discharged from the department. FINDINGS: None IMPRESSION: Technically successful CT-guided bone marrow biopsy. <Electronically signed by Sven Chaudhry > 07/25/20 [id number] <Electronically signed by Tu Lara > 07/25/20 [id number]
== END ==
LOC: M IRPRO 08:52
PROVIDERS: ATTEND Specialist
DX: C92.00 Acute myeloblastic leukemia, not having achieved remission (principal); D61.818 Other pancytopenia

== ENCOUNTER 2020-08-08 08:27 | Emergency (ER) | payer OTHER ==
[~2020-08-08] VITALS: Ht 188 cm; Wt 97.8 kg
[~2020-08-08 08:27] MED LIST changes: -LIDOCAINE 1% MDV 20ML VIAL As Ordered ONE
[2020-08-08] MEDS ORDERED: NS 1,000 ML IV ONE (09:15)
[2020-08-08] MEDS ORDERED: POTASSIUM CHLORIDE 10 MEQ SR TABLET PO ONE ×2 (09:45→10:00)
[2020-08-08] MEDS ORDERED: KCL 10MEQ/100ML SWI (KRUN) 10 MEQ in IV 1 EA IV ONE (09:45)
[2020-08-08] MEDS ORDERED: MORPHINE 4 MG/ML 1ML VIAL/SYRINGE (J2270) IV ONE (09:45)
[2020-08-08] MEDS ORDERED: ONDANSETRON 4MG/2ML VIAL IV ONE (09:45)
[2020-08-08 09:49] LABS: HEMATOCRIT 22.3 % (42.0-52.0); MEAN CORPUSCULAR HEMOGLOBIN 25.3 pg (27.0-33.0); MEAN CORPUSCULAR HGB CONC 31.4 g/dl (32.0-36.5); MEAN CORPUSCULAR VOLUME 80.5 fl (80.0-96.0); RED BLOOD COUNT 2.77 10^6/uL (4.30-6.10)
[2020-08-08 09:50] LABS: PLATELET COUNT, AUTOMATED 90 10^3/uL (150-450)
[2020-08-08 09:58] LABS: WHITE BLOOD COUNT 236.1 10^3/uL (4.0-10.0)
[2020-08-08 09:59] LABS: INR 1.3; PROTHROMBIN TIME 16.5 SECONDS (12.5-14.3)
[2020-08-08 10:00] LABS: PARTIAL THROMBOPLASTIN TIME 38.4 SECONDS (24.2-38.5)
[2020-08-08 10:11] LABS: ALBUMIN 2.9 GM/DL (3.2-5.2); ALT/SGPT 14 U/L (12-78); BILIRUBIN,DIRECT 0.3 MG/DL (0.0-0.2); BILIRUBIN,TOTAL 0.7 MG/DL (0.2-1.0); CK-MB VALUE MASS < 1.0 NG/ML (<3.6); CPK CREATINE PHOSPHOKINASE 60 U/L (39-308); LIPASE 139 U/L (73-393); MAGNESIUM LEVEL 1.2 MG/DL (1.8-2.4); MB/CK RELATIVE INDEX 1.67 (< OR =4); TOTAL PROTEIN 7.8 GM/DL (6.4-8.2); TROPONIN I < 0.02 NG/ML (< 0.10); URIC ACID 17.8 MG/DL (3.5-7.2)
[2020-08-08 10:18] LABS: BASOPHILS 1 % (0-1); METAMYELOCYTES 2 % (0-0); MONOCYTES 23 % (0-5); PROMYELOCYTES 31 % (0-0)
[2020-08-08 10:20] LABS: BLAST CELLS 43 % (0-0); PLATELET ESTIMATE MARKED DECREASE (NORMAL)
[2020-08-08 10:21] LABS: ANISOCYTOSIS 3+; MICROCYTOSIS 2+
[2020-08-08 10:22] LABS: HYPOCHROMASIA 1+; POIKILOCYTOSIS 1+
[2020-08-08] MEDS ORDERED: allopurinoL 300 MG TAB PO STA (11:41)
[2020-08-08 11:55] VITALS: BP 137/66
[2020-08-08 12:10] VITALS: BP 130/66
[2020-08-08 12:12] LABS: LDH LACTATE DEHYDROGENASE 1773 U/L (87-241)
[2020-08-08 13:10] VITALS: BP 124/79
[2020-08-08 13:30] VITALS: BP 122/83
[2020-08-08 14:31] VITALS: BP 142/84
--- NOTE | 2020-08-09 21:27 | ECGEPIP ---
[facility] - ED Test Date: 2020-08-08 Pat Name: ASHISH LO Department: Room: - Gender: Male Director Erp: silva : 1970 Requested By: YRN Sharma PA-C Order Number: [id number] Reading MD: Jyoti Preston Measurements Intervals [place] Rate: 104 P: 36 [place]: 136 QRS: 26 QRSD: 96 T: 14 QT: 348 QTc: 459 Interpretive Statements SINUS TACHYCARDIA ABNORMAL RHYTHM ECG NSTTW abnormalities INCREASED RATE 03/28/20 Electronically Signed on 08-09-2020 21:27:28 EST by Jyoti Preston
== END 2020-08-08 14:33 | disposition short-term general hospital (02) ==
LOC: M ED 08:27
DX: C92.90 Myeloid leukemia, unspecified, not having achieved remission (principal); D72.829 Elevated white blood cell count, unspecified; N17.9 Acute kidney failure, unspecified; D61.810 Antineoplastic chemotherapy induced pancytopenia; K08.89 Other specified disorders of teeth and supporting structures; K02.9 Dental caries, unspecified; R00.0 Tachycardia, unspecified; R42 Dizziness and giddiness; E11.9 Type 2 diabetes mellitus without complications; F41.9 Anxiety disorder, unspecified; F32.9 Major depressive disorder, single episode, unspecified; Z87.442 Personal history of urinary calculi; Z79.899 Other long term (current) drug therapy
CPT/HCPCS: 36415; 36430; 80047; 80076; 82550; 82553; 83615; 83690; 83735; 84550; 85025; 85049; 85055; 85610; 85730; 86850; 86900; 86901; 86920; 93005; 96361; 96374; 96375; 99284; J2270; J2405; P9016; U0002

== ENCOUNTER → 2020-09-12 | Outpatient (CLI) | payer OTHER ==
[~2020-09-12] MED LIST changes: +ACYC1CAP20 PO; +CIPR-249 PO; +DIFL200T PO; +FLAG500T PO; +MAGN64TASA PO; +MULTTAB57 PO; +ONDA8TAB8 PO
--- NOTE | 2020-09-12 19:42 | ECGEPIP ---
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
== END ==
LOC: M EKG 09:16
PROVIDERS: ATTEND Specialist
DX: C92.00 Acute myeloblastic leukemia, not having achieved remission (principal)

== ENCOUNTER 2020-09-19 15:10 | Observation (INO) | payer OTHER ==
[~2020-09-19] VITALS: Ht 188 cm; Wt 89.2 kg
[2020-09-19] MEDS ORDERED: [UNRECOGNIZED DRUG - CODE] PO (15:20)
[2020-09-19] MEDS ORDERED: MAGN400T3 PO (16:12)
[2020-09-19] MEDS ORDERED: ZYLO300T6 PO (16:12)
[2020-09-19] MEDS ORDERED: ONDA-196 PO (16:12)
[2020-09-19 17:31] LABS: RSV AMPLIFICATION NEGATIVE (NEGATIVE)
[2020-09-19] MEDS ORDERED: ONDANSETRON 4 MG TAB PO PRN (18:30)
--- NOTE | 2020-09-19 18:51 | HPEPDOC ---
[facility] Medical History & Physical Date of Admission Sep 19, 2020 Date of Service: Sep 19, 2020 Attending Physician: Charisma Younger MD History and Physical CHIEF COMPLAINT: Platelet transfusion HISTORY OF PRESENT ILLNESS: Patient is a 49-year-old male with past medical history of AML, diabetes mellitus type 2, history of kidney stones, chronic anemia, hypomagnesemia who was sent to the emergency room today for platelet infusion. According to hematology/oncology, the patient has been on an medication Xospata which has been causing lower than normal blood numbers. H&H has remained stable but his platelets since 05/2020 has dropped from 170 down to 11 on repeat labs today. The patient follows both with local oncologist (Dr. Nichole) and oncologist in [place] for AML (Dr. Pollock), his oncologist in [place] has been prescribing the Xospata. I discussed the case in detail with Dr. Sanchez, on-call oncologist. He states goal platelets for this patient is greater than 20 and may need 12 platelets to be infused. Typically this is as outpatient; however, due to holiday schedule the patient was sent to the hospital for this to be done. R no concerns for bleeding and the patient has no signs in terms of bleeding. Medicine team was asked to admit for platelet infusion only under observation st atus. REVIEW OF SYSTEMS: CONSTITUTIONAL: Denies lack of energy, unexplained weight gain or weight loss, loss of appetite, fever, night sweats EYES: Denies eye drainage, eye pain, visual changes, dry/irritated eye EARS, NOSE, MOUTH, THROAT: Denies difficulty hearing, ringing in ears, mouth sores, loose teeth, sore throat, facial numbness or pain NECK: Denies swollen glands CARDIOVASCULAR: Denies irregular heartbeat, racing heart, chest pains, swelling of feet or legs, pain in legs with walking RESPIRATORY: Denies shortness of breath, night sweats, wheezing, sputum production, oxygen at home, coughing up blood, cough lasting > 1 month GASTROINTESTINAL: Denies abdominal pain, constipation, bloody stool, diarrhea, heartburn, nausea, vomiting GENITOURINARY: Denies painful urination, bloody urine, frequent urination, urgency, leaking urine, impotence MUSCULOSKELETAL: Denies joint pain, muscle pain, leg swelling INTEGUMENTARY: Denies rash, itching, new skin lesion, change in existing skin lesion, hair loss or increase, breast changes. NEUROLOGICAL: Denies headaches, dizziness, difficulty walking, numbness or tingling PSYCHIATRIC: Denies depression, anxiety, recurrent bad thoughts, mood swings, hallucinations PAST MEDICAL HISTORY: AML hx of kidney stones Anemia hypomagnesemia DM type II PAST SURGICAL HISTORY: 2 carpal tunnel surgeries Tonsillectomy FAMILY HISTORY: Father: DM. in 50's. Mother: DM type II, CAD. at 66 y/o SOCIAL HISTORY: Smokes 2 cigars/year, denies alcohol or drug use. PCP: Kimberley Haney in [facility] oncology- Dr. Pollock, [place] oncology- Dr. Nichole. Full code. ALLERGIES: Please see below. HOME MEDICATIONS: Please see below. PHYSICAL EXAMINATION: VS: Please see below CONSTITUTIONAL: No acute distress, resting comfortably, AAO x 3 EYES: PERRLA, EOM intact HENT, MOUTH: Normocephalic, atraumatic, moist mucous membranes, NECK: SUPPLE, no JVD, no lymphadenopathy, no carotid bruit CV: Regular rate and rhythm, S1S2 normal, no murmurs/rubs/gallops RESPIRATORY: Clear to auscultation bilaterally, no rales/rhonchi/wheezes GI: BS positive in 4 quadrants, soft, nontender, nondistended, no rebound or guarding, no organomegaly : Deferred MUSCULOSKELETAL: Normal ROM. No cyanosis, clubbing, swelling, joint deformity, +1 pitting extremity edema INTEGUMENTARY: Intact, no rashes, no lesions, no erythema NEUROLOGIC: Cranial Nerves II-XII are intact, no focal deficits PSYCHIATRIC: Mood and affect are normal LABORATORY DATA: Please see below IMAGING: None ASSESSMENT: 49-year-old male with past medical history of AML, diabetes mellitus type 2, history of kidney stones, chronic anemia, hypomagnesemia admitted for chronic thrombocytopenia requiring platelet infusion under observation status PLAN: Chronic thrombocytopenia, worsened likely 2/2 to gilteritinib (cancer medication) -Platelets since 05/2020 decreased from 170 to 11, no s/s of bleeding -Per oncology, transfuse platelets until Goal of >20 achieved. To receive one infusion currently, 1 on hold. -Consent done in ER -F/u CBC 1 hour after infusion of platelets. If PLTS >20, can discharge home on all medications EXCEPT Gilteritinib (Xospata) per Dr. Sanchez. Patient is to call his [place] oncologist in the AM to discuss when to restart per Dr. Casimiro conti. -[facility] would like to follow up with him after holiday weekend. AML -Followed closely by both oncology teams -On acyclovir, ciprofloxacin, fluconazole, metronidazole -F/u as o/p after discharge DM type II -C/w home metformin this evening. Can resume his pioglitazone in the AM. -Consistent carb diet. Holding off on ISS and FS Pancytopenia 2/2 to AML, hx of CLYDE, Anemia of chronic disease -H/H although low, not at level to transfuse -PLTs above -Resume home iron supplement at discharge -To f/u with oncology o/p Hypomagnesemia -C/w magnesium supplement DVT px -SCDs, teds DISPOSITION: Patient admitted only for platelet infusion as observation. When PLTs >20 (will likely occur overnight if corrects appropriately), please discharge home to follow up with [facility] after weekend. Vital Signs Vital Signs Date Time Temp Pulse Resp B/P (MAP) Pulse Ox O2 Delivery O2 Flow Rate FiO2 09/19/20 15:46 09/19/20 15:11 96.9 103 18 100 Room Air Laboratory Data Labs 24H Laboratory Tests 2 09/19/20 16:19: Coronavirus (COVID-19)(PCR) NEGATIVE, Influenza Type A (RT-PCR) NEGATIVE, Influenza Type B (RT-PCR) NEGATIVE, Respiratory Syncytial Virus (PCR) NEGATIVE Home Medications Scheduled Acyclovir (Acyclovir) 200 Mg Capsule, 400 MG PO BID Allopurinol (Zyloprim) 300 Mg Tablet, 300 MG PO DAILY Ciprofloxacin HCl (Cipro) 500 Mg Tablet, 500 MG PO BID Fluconazole (Diflucan) 200 Mg Tablet, 200 MG PO BID Gilteritinib Fumarate (Xospata) 40 Mg Tablet, 120 MG PO DAILY Iron Fum,Ag/C/B12/Folic/Ca/Suc (Multigen Plus Caplet) 1 Each Tablet, 1 TAB PO DAILY Magnesium Oxide (Magnesium Oxide) 400 Mg Tablet, 400 MG PO BID Metformin HCl (Metformin HCl ER) 500 Mg Tab.er.24h, 1,000 MG PO QHS Metronidazole (Flagyl) 500 Mg Tablet, 500 MG PO TID Pioglitazone HCl (Actos) 45 Mg Tablet, 45 MG PO DAILY Scheduled PRN Ondansetron HCl (Ondansetron HCl) 8 Mg Tablet, 8 MG PO Q8H PRN for NAUSEA OR VOMITING Allergies Coded Allergies: No Known Allergies (Verified , 03/26/03) A-FIB/CHADSVASC A-FIB History Current/History of A-Fib/PAF?: No Current PO Anticoag Therapy: No Age/Risk Factor Scoring CHADSVASC: CHADSVASC Response (Comments) Value Age Risk Factor Age < 65 years old 0 Gender Risk Factor Male 0 Hx of CHF No 0 Hx of HTN No 0 Hx of Stroke/TIA/or VTE No 0 Hx of Diabetes Yes 1 Hx of Vascular Disease No 0 Total 1 Treatment Treatment ordered: Other Other anticoagulant ordered: scd, Charisma Lorenzana MD Sep 19, 2020 18:51
[2020-09-19] MEDS ORDERED: metFORMIN XR 500MG TAB *GLUCOPHAGE XR PO SCH (21:00)
[2020-09-19 21:10] VITALS: BP 165/100
[2020-09-19] MEDS: metroNIDAZOLE (FLAGYL) 500MG TABLET PO SCH (22:07)
[2020-09-19] MEDS: FLUCONAZOLE 100 MG TAB PO SCH (22:07)
[2020-09-19] MEDS: MAGNESIUM OXIDE 400MG TAB (MAG-OX) PO SCH (22:07)
[2020-09-19] MEDS: CIPROFLOXACIN 500MG TABLET PO SCH (22:07)
[2020-09-19] MEDS: ACYCLOVIR 200 MG CAPSULE PO SCH (22:40)
[2020-09-20] VITALS (13 sets, daily range): BP systolic 115–142; BP diastolic 73–87
[2020-09-20 03:18] LABS: MEAN CORPUSCULAR HEMOGLOBIN 27.9 pg (27.0-33.0); MEAN CORPUSCULAR HGB CONC 32.5 g/dl (32.0-36.5); MEAN CORPUSCULAR VOLUME 85.8 fl (80.0-96.0); WHITE BLOOD COUNT 2.3 10^3/uL (4.0-10.0)
[2020-09-20 03:19] LABS: HEMATOCRIT 20.6 % (42.0-52.0); PLATELET COUNT, AUTOMATED 26 10^3/uL (150-450)
[2020-09-20 03:21] LABS: HEMOGLOBIN 6.7 g/dl (13.5-17.5)
[2020-09-20 03:53] LABS: HEMATOCRIT 21.3 % (42.0-52.0)
[2020-09-20 03:54] LABS: HEMOGLOBIN 6.9 g/dl (13.5-17.5)
[2020-09-20] MEDS ORDERED: allopurinoL 300 MG TAB PO SCH (09:00)
[2020-09-20] MEDS: metroNIDAZOLE (FLAGYL) 500MG TABLET PO SCH ×2 (09:20→16:16)
[2020-09-20] MEDS: FLUCONAZOLE 100 MG TAB PO SCH (09:21)
[2020-09-20] MEDS: CIPROFLOXACIN 500MG TABLET PO SCH (09:21)
[2020-09-20] MEDS: MAGNESIUM OXIDE 400MG TAB (MAG-OX) PO SCH (09:21)
[2020-09-20] MEDS: ACYCLOVIR 200 MG CAPSULE PO SCH (09:21)
[2020-09-20 11:04] LABS: HEMATOCRIT 23.3 % (42.0-52.0); HEMOGLOBIN 7.5 g/dl (13.5-17.5); MEAN CORPUSCULAR HEMOGLOBIN 27.8 pg (27.0-33.0); MEAN CORPUSCULAR HGB CONC 32.2 g/dl (32.0-36.5); MEAN CORPUSCULAR VOLUME 86.3 fl (80.0-96.0); WHITE BLOOD COUNT 1.4 10^3/uL (4.0-10.0)
[2020-09-20 11:08] LABS: PLATELET COUNT, AUTOMATED 23 10^3/uL (150-450)
[2020-09-20 15:35] LABS: HEMOGLOBIN 8.3 g/dl (13.5-17.5); MEAN CORPUSCULAR HEMOGLOBIN 27.8 pg (27.0-33.0); MEAN CORPUSCULAR HGB CONC 31.9 g/dl (32.0-36.5); RED BLOOD COUNT 2.99 10^6/uL (4.30-6.10); WHITE BLOOD COUNT 2.4 10^3/uL (4.0-10.0)
[2020-09-20 15:41] LABS: PLATELET COUNT, AUTOMATED 24 10^3/uL (150-450)
--- NOTE | 2020-09-20 16:24 | DS.PDOC ---
Discharge Summary General Date of Admission Sep 19, 2020 at 15:11 Date of Discharge 09/20/20 Attending Physician: Charisma Younger MD Discharge Summary HISTORY OF PRESENT ILLNESS: Patient is a 49-year-old male with past medical history of AML, diabetes mellitus type 2, history of kidney stones, chronic anemia, hypomagnesemia who was sent to the emergency room today for platelet infusion. According to hematology/oncology, the patient has been on an medication Xospata which has been causing lower than normal blood numbers. H&H has remained stable but his platelets since 05/2020 has dropped from 170 down to 11 on repeat labs today. The patient follows both with local oncologist (Dr. Nichole) and oncologist in [place] for AML (Dr. Pollock), his oncologist in [place] has been prescribing the Xospata. I discussed the case in detail with Dr. Sanchez, on-call oncologist. He states goal platelets for this patient is greater than 20 and may need 12 platelets to be infused. Typically this is as outpatient; however, due to holiday schedule the patient was sent to the hospital for this to be done. R no concerns for bleeding and the patient has no signs in terms of bleeding. M edicine team was asked to admit for platelet infusion only under observation status. HOSPITAL COURSE: Patient received a total of 2 packs of PLTS and also required 2 units of PRBC to bring his final H/H to 8.3/26 and PLTs to 24. He had no reactions, chest pain, shortness of breath, fevers, chills, n/v/d. On 09/20/20 later in the day, patient was finally discharged to follow up with Dr. Nichole ([facility]) after holiday weekend. He is also advised to please call his [place] oncologist t omorrow or over the weekend to let them know that the [place] oncology group advised him to hold off on taking the gilteritinib due to falling blood levels. Dr. Sanchez suggested he talk to them before resuming this medication. At discharge patient denied chest pain, shortness of breath, lightheadedness PAST MEDICAL HISTORY: AML hx of kidney stones Anemia hypomagnesemia DM type II PAST SURGICAL HISTORY: 2 carpal tunnel surgeries Tonsillectomy FAMILY HISTORY: Father: DM. in 50's. Mother: DM type II, CAD. at 66 y/o SOCIAL HISTORY: Smokes 2 cigars/year, denies alcohol or drug use. PCP: Kimberley Haney in [place], [place] oncology- Dr. Pollock, [place] oncology- Dr. Nichole. Full code. ALLERGIES: Please see below. HOME MEDICATIONS: Please see below. PHYSICAL EXAMINATION: VS: Please see below CONSTITUTIONAL: No acute distress, resting comfortably, AAO x 3 EYES: PERRLA, EOM intact HENT, MOUTH: Normocephalic, atraumatic, moist mucous membranes, NECK: SUPPLE, no JVD, no lymphadenopathy, no carotid bruit CV: Regular rate and rhythm, S1S2 normal, no murmurs/rubs/gallops RESPIRATORY: Clear to auscultation bilaterally, no rales/rhonchi/wheezes GI: BS positive in 4 quadrants, soft, nontender, nondistended, no rebound or guarding, no organomegaly : Deferred MUSCULOSKELETAL: Normal ROM. No cyanosis, clubbing, swelling, joint deformity, +1 pitting extremity edema INTEGUMENTARY: Intact, no rashes, no lesions, no erythema NEUROLOGIC: Cranial Nerves II-XII are intact, no focal deficits PSYCHIATRIC: Mood and affect are normal LABORATORY DATA: Please see below IMAGING: None ASSESSMENT: 49-year-old male with past medical history of AML, diabetes mellitus type 2, history of kidney stones, chronic anemia, hypomagnesemia admitted for chronic thrombocytopenia requiring platelet infusion under observation status PLAN: Chronic thrombocytopenia, worsened likely 2/2 to gilteritinib (cancer medication) -Platelets since 05/2020 decreased from 170 to 11, no s/s of bleeding -S/p 2 packs of PLTs this observation admission with improvement to 24. Goal of >20 achieved. -[facility] would like to follow up with him after holiday weekend. -At d/c he is advised to please call his [place] oncologist tomorrow or over the weekend to let them know that the [place] oncology group advised him to hold off on taking the gilteritinib due to falling blood levels. Chronic anemia likely 2/2 to AML, possibly 2/2 to medication above -Hgb decreased from 8.1 on admission to 6.9 after 1st dose of PLTs -He was given 2 units PRBC which increased his Hgb back up to 8.3 -Asymptomatic -Advised to f/u with oncology o/p, c/w iron/vitamin supplement AML -Followed closely by both oncology teams -On acyclovir, ciprofloxacin, fluconazole, metronidazole -F/u as o/p after discharge DM type II -C/w home metformin, pioglitazone Pancytopenia 2/2 to AML, hx of CLYDE, Anemia of chronic disease -H/H although low, not at level to transfuse -PLTs above -Resume home meds Hypomagnesemia -C/w magnesium supplement DISPOSITION: D/c today. He is advised to follow up with [facility] after weekend. TIME SPENT ON DISCHARGE: Greater than 30 minutes. Vital Signs/I&Os Vital Signs Date Time Temp Pulse Resp B/P (MAP) Pulse Ox O2 Delivery O2 Flow Rate FiO2 09/20/20 14:29 99.4 100 18 142/87 100 Room Air I&O- Last 24 Hours up to 6 AM 09/20/20 06:00 Intake Total 750 ml Balance 750 ml Laboratory Data Labs 24H Laboratory Tests 2 09/19/20 16:19: Coronavirus (COVID-19)(PCR) NEGATIVE, Influenza Type A (RT-PCR) NEGATIVE, Influenza Type B (RT-PCR) NEGATIVE, Respiratory Syncytial Virus (PCR) NEGATIVE 09/20/20 03:00: Nucleated Red Blood Cells % (auto) 0.0 09/20/20 10:52: Nucleated Red Blood Cells % (auto) 0.0, Immature Platelet Fraction 5.3 09/20/20 15:26: Nucleated Red Blood Cells % (auto) 0.0 CBC/BMP Laboratory Tests 09/20/20 03:00 09/20/20 03:45 09/20/20 10:52 09/20/20 15:26 Discharge Medications Scheduled Acyclovir (Acyclovir) 200 Mg Capsule, 400 MG PO BID, (Reported) Allopurinol (Zyloprim) 300 Mg Tablet, 300 MG PO DAILY, (Reported) Ciprofloxacin HCl (Cipro) 500 Mg Tablet, 500 MG PO BID, (Reported) Fluconazole (Diflucan) 200 Mg Tablet, 200 MG PO BID, (Reported) Iron Fum,Ag/C/B12/Folic/Ca/Suc (Multigen Plus Caplet) 1 Each Tablet, 1 TAB PO DAILY, (Reported) Magnesium Oxide (Magnesium Oxide) 400 Mg Tablet, 400 MG PO BID, (Reported) Metformin HCl (Metformin HCl ER) 500 Mg Tab.er.24h, 1,000 MG PO QHS, (Reported) Metronidazole (Flagyl) 500 Mg Tablet, 500 MG PO TID, (Reported) Pioglitazone HCl (Actos) 45 Mg Tablet, 45 MG PO DAILY, (Reported) Scheduled PRN Ondansetron HCl (Ondansetron HCl) 8 Mg Tablet, 8 MG PO Q8H PRN for NAUSEA OR VOMITING, (Reported) Allergies Coded Allergies: No Known Allergies (Verified , 03/26/03) Charisma Younger MD Sep 20, 2020 16:24
== END 2020-09-20 17:17 | disposition home or self-care (01) ==
LOC: M ED 15:10 → M ED INP 15:11 → ENRESERV 20:16 → M MSPAV 21:12
PROVIDERS: ADMIT Internal Medicine; ATTEND Internal Medicine
DX: D69.6 Thrombocytopenia, unspecified (principal); C92.00 Acute myeloblastic leukemia, not having achieved remission; E11.9 Type 2 diabetes mellitus without complications; Z79.84 Long term (current) use of oral hypoglycemic drugs; Z79.899 Other long term (current) drug therapy
CPT/HCPCS: 36415; 36430; 80053; 83615; 85014; 85018; 85025; 85027; 85049; 85055; 86850; 86900; 86901; 86920; 87631; 99284; P9016; P9034

== ENCOUNTER → 2020-10-07 | Outpatient (CLI) | payer OTHER ==
[~2020-10-07] MED LIST changes: +MAGN400T3 PO; +ONDA-196 PO; +ZYLO300T6 PO; +[UNRECOGNIZED DRUG - CODE] PO
--- NOTE | 2020-10-07 16:23 | ECGEPIP ---
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
== END ==
LOC: M EKG 11:42
PROVIDERS: ATTEND Specialist
DX: C92.00 Acute myeloblastic leukemia, not having achieved remission (principal)

== ENCOUNTER 2020-10-08 12:08 | Outpatient (CLI) | payer OTHER ==
[~2020-10-08] VITALS: Ht 188 cm; Wt 86.2 kg
[2020-10-08 12:44] VITALS: BP 144/86
[2020-10-08 12:55] VITALS: BP 144/86
[2020-10-08] MEDS ORDERED: SODIUM CHLORIDE 0.9% INJ 10 ML SYR IV PRN (13:00)
[2020-10-08 13:10] VITALS: BP 138/76
[2020-10-08 14:20] VITALS: BP 149/88
[2020-10-08 15:10] VITALS: BP 131/55
[2020-10-08] MEDS ORDERED: SODIUM CHLORIDE 0.9% INJ 10 ML SYR IV SCH (18:00)
== END 2020-10-08 15:10 | disposition home or self-care (01) ==
LOC: M INFU 12:08
PROVIDERS: ATTEND Specialist
DX: C92.02 Acute myeloblastic leukemia, in relapse (principal)
CPT/HCPCS: 36430; J1642; P9036